=== PATIENT | male | born 1975 | race Caucasian/White ===

== ENCOUNTER 2024-05-10 04:13 | Observation (INO) | payer MEDICAID ==
[~2024-05-10] VITALS: Ht 177.8 cm; Wt 65.5 kg
[2024-05-10] MEDS ORDERED: NS 1,000 ML IV SCH (04:25)
[2024-05-10 04:30] LABS: BASOPHILS ABSOLUTE AUTO 0.06 K/mm3 (0.00-0.23); BASOPHILS PERCENT AUTO 1 % (0-2); EOSINOPHILS ABSOLUTE AUTO 0.17 K/mm3 (0.00-0.68); EOSINOPHILS PERCENT AUTO 2 % (0-6); Hemoglobin 14.8 g/dL (13.5-17.5); IMMATURE GRAN ABSOLUTE AUTO 0.02 K/mm3 (0.00-0.10); IMMATURE GRAN PERCENT AUTO 0 % (0-1); LYMPHOCYTES PERCENT AUTO 31 % (21-46); MONOCYTES ABSOLUTE AUTO 0.79 K/mm3 (0.16-1.47); MONOCYTES PERCENT AUTO 10 % (4-13); Mean Corpuscular HGB 32.2 pg (26.0-34.0); Mean Corpuscular HGB Conc 35.2 g/dL (31.5-36.5); Mean Corpuscular Volume 91 fL (80-100); Mean Platelet Volume 9.4 fL (9.1-12.4); NEUTROPHILS ABSOLUTE AUTO 4.63 K/mm3 (1.96-9.15); NEUTROPHILS PERCENT AUTO 57 % (41-73); Platelet Count 303 K/mm3 (150-400); RDW Standard Deviation 40.1 fL (35.1-46.3); White Blood Cell Count 8.17 K/mm3 (4.00-11.30)
[2024-05-10 05:00] LABS: Albumin, Blood 3.4 g/dL (3.4-5.0); Albumin/Globulin Ratio 0.8 (0.8-1.8); Bilirubin, Total 0.6 mg/dL (0.1-1.0); Bun/Creatinine Ratio 20.2 (12.0-20.0); Calcium, Blood 9.2 mg/dL (8.5-10.1); Creatinine, Blood 0.89 mg/dL (0.60-1.20); Total Protein, Blood 7.4 g/dL (6.4-8.2)
[2024-05-10] MEDS ORDERED: DICY20 PO (08:15)
[2024-05-10] MEDS ORDERED: ONDA4ODT MM (08:15)
[2024-05-10] MEDS ORDERED: Aspirin 325 MG Tab PO ONE (09:40)
[2024-05-10] MEDS ORDERED: Naloxone HCl 0.4MG / ML 1ML Vial IV PRN (10:30)
[2024-05-10] MEDS ORDERED: Acetaminophen 325 MG TABLET PO PRN (10:30)
[2024-05-10] MEDS ORDERED: Lactated Ringer's 1,000 ML IV SCH ×2 (10:35→12:40)
[2024-05-10 11:45] LABS: Source, Urine Voided
--- NOTE | 2024-05-10 11:56 | NUR ---
REPORT RECIEVED FROM ER NURSE AT [id number]
[2024-05-10 12:04] LABS: Bilirubin, Urine Neg (Neg); Blood, Urine Neg (Neg); Glucose Qualitative, Urine Neg (Neg); Ketones, Urine Neg (Neg); Leukocyte Esterase, Urine Neg (Neg); Nitrite, Urine Neg (Neg); Protein, Urine Neg (Neg); Urobilinogen, Urine NORM (Normal)
[2024-05-10 12:11] VITALS: BP 109/98
[2024-05-10 12:38] LABS: Appearance, Urine Clear (Clear); Color, Urine Yellow (P-Yellow)
[2024-05-10 12:41] LABS: U Amphetamine Screen DETECTED; U Barbituate Screen Not Detected; U Benzodiazapine Screen Not Detected; U Buprenorphine Screen Not Detected; U Cannabinoids Screen Not Detected; U Cocaine Screen Not Detected; U Methadone Screen Not Detected; U Methamphetamine Screen DETECTED; U Opiates Screen Not Detected; U Oxycodone Screen Not Detected; U Phencyclidine Screen Not Detected
--- NOTE | 2024-05-10 13:52 | NUR ---
ARRIVAL TO UNIT PT ARRIVED TO PCU AT 1207 VIA GURNEY AND ON RA. PT ABLE TO TRANSFER FROM GURNEY TO BED ON HIS OWN, PT VERY SOMNOLENT AT ARRIVAL. PT ORIENTED TO ROOM AND ABLE TO ANSWER SHORT BRIEF QUESTIONS BEFORE FALLING BACK TO SLEEP. PT ABLE TO STAND AND USE URINAL AT BEDSIDE, TOLERATED FAIR. PT ABLE TO ANSWER FEW ORIENTATION QUESTIONS BEFORE FALLING BACK TO SLEEP.
--- NOTE | 2024-05-10 15:38 | NUR ---
DISHCARGE UPDATE DISCHARGE PACKET GONE OVER WITH PT AND PT FAMILY AND FRIEND. DISCHARGE PACKET WITH PT AT TIME OF DISCHARGE. PT INSTRUCTED TO WALK TO HALLWAY AND BACK TO HIS BED TO ASSESS HOW PT AMBULTES, TOLERATED WELL. PT ABLE TO TRANSFER TO AND FROM WHEELCHAIR ON HIS OWN, TOLERATED WELL.
[2024-05-11] MEDS ORDERED: Enoxaparin 40 MG/0.4 ML SYR SC SCH (09:00)
[2024-05-11] MEDS ORDERED: Aspirin 81 MG Chew PO SCH (09:00)
== END 2024-05-10 15:30 | disposition home or self-care (01) ==
LOC: ER 04:13 → PCU 04:14 → ERHOLD 04:14 → PCU 12:11
PROVIDERS: Emergency Medicine; ADMIT Internal Medicine
DX: T40.2X1A Poisoning by other opioids, accidental (unintentional), initial encounter (principal); R79.89 Other specified abnormal findings of blood chemistry; R74.8 Abnormal levels of other serum enzymes; F15.10 Other stimulant abuse, uncomplicated; Z88.0 Allergy status to penicillin
CPT/HCPCS: 71045; 80053; 81003; 82550; 84484; 85025; 93005; 93010; 96360; 99285-25; A9270; G0378; J7120

== ENCOUNTER 2024-05-23 23:39 | Inpatient (IN) | payer MEDICAID ==
[~2024-05-23] VITALS: Ht 177.8 cm; Wt 63.9 kg
[~2024-05-23 23:39] MED LIST: DICY20 PO; ONDA4ODT MM
[2024-05-24 00:28] LABS: BASOPHILS ABSOLUTE AUTO 0.08 K/mm3 (0.00-0.23); BASOPHILS PERCENT AUTO 0 % (0-2); EOSINOPHILS ABSOLUTE AUTO 0.01 K/mm3 (0.00-0.68); EOSINOPHILS PERCENT AUTO 0 % (0-6); Hematocrit 44.6 % (37.0-53.0); Hemoglobin 15.4 g/dL (13.5-17.5); IMMATURE GRAN ABSOLUTE AUTO 0.08 K/mm3 (0.00-0.10); IMMATURE GRAN PERCENT AUTO 0 % (0-1); LYMPHOCYTES ABSOLUTE AUTO 1.45 K/mm3 (0.84-5.20); LYMPHOCYTES PERCENT AUTO 7 % (21-46); MONOCYTES ABSOLUTE AUTO 1.51 K/mm3 (0.16-1.47); MONOCYTES PERCENT AUTO 7 % (4-13); Mean Corpuscular HGB 30.9 pg (26.0-34.0); Mean Corpuscular HGB Conc 34.5 g/dL (31.5-36.5); Mean Corpuscular Volume 90 fL (80-100); Mean Platelet Volume 8.6 fL (9.1-12.4); NEUTROPHILS ABSOLUTE AUTO 18.49 K/mm3 (1.96-9.15); NEUTROPHILS PERCENT AUTO 86 % (41-73); Platelet Count 401 K/mm3 (150-400); RDW Standard Deviation 39.4 fL (35.1-46.3); Red Blood Cell Count 4.98 M/mm3 (4.30-5.90); White Blood Cell Count 21.62 K/mm3 (4.00-11.30)
[2024-05-24 00:47] LABS: Albumin, Blood 3.5 g/dL (3.4-5.0); Albumin/Globulin Ratio 0.8 (0.8-1.8); Bilirubin, Total 0.7 mg/dL (0.1-1.0); Bun/Creatinine Ratio 13.8 (12.0-20.0); Calcium, Blood 9.4 mg/dL (8.5-10.1); Creatinine, Blood 0.8 mg/dL (0.60-1.20); Globulin, Blood 4.3 g/dL (2.2-4.0); Potassium, Blood 4.1 mmol/L (3.5-5.5); Total Protein, Blood 7.8 g/dL (6.4-8.2)
[2024-05-24] MEDS ORDERED: Ketorolac Tromethamine 30mg Vial IV ONE (01:20)
[2024-05-24] MEDS ORDERED: CefTRIAXone Sodium 1,000 MG in NS 50 ML IV ONE (01:20)
[2024-05-24] MEDS ORDERED: NS 1,000 ML IV SCH (01:20)
[2024-05-24] MEDS ORDERED: FLU VACC TS2024-25(6MOS UP)/PF 45 MCG/0.5 ML SYRINGE IM SCH (03:05)
[2024-05-24] MEDS ORDERED: OxyCODONE HCL 5 MG TAB PO PRN (03:05)
[2024-05-24] MEDS ORDERED: Acetaminophen 325 MG TABLET PO PRN (03:05)
[2024-05-24] MEDS ORDERED: Ondansetron HCl 2 MG / ML 2ML Vial IV PRN (03:10)
[2024-05-24] MEDS ORDERED: Vancomycin HCL 1,500 MG in NS 250 ML IV ONE (03:25)
--- NOTE | 2024-05-24 04:55 | NUR ---
NEW ADMIT/ SHIFT SUMMARY RECEIVED PT FROM ED AT 0455. PT VERY LETHARGIC, AWAKENS, BUT UNABLE TO KEEP AWAKE. UNABLE TO COMPLETE ADMISSION HISTORY IN ITS ENTIRETY. CELLULITIS RUE OUTLINED WITH SKIN MARKER, ELEVATED ON PILLOW. PICTURES OF CELLULITIS AND MULTIPLE WOUNDS OBTAINED AFTER VERBAL CONSENT. SECURITY COUNTED PT'S MONEY AND TOOK IT TO THE SAFE. BED ALARM ON, CALL LIGHT WITHIN REACH, SIDE RAILS UP X2.
[2024-05-24 05:45] LABS: BASOPHILS ABSOLUTE AUTO 0.08 K/mm3 (0.00-0.23); BASOPHILS PERCENT AUTO 0 % (0-2); EOSINOPHILS ABSOLUTE AUTO 0.03 K/mm3 (0.00-0.68); EOSINOPHILS PERCENT AUTO 0 % (0-6); Hematocrit 40.8 % (37.0-53.0); Hemoglobin 14.1 g/dL (13.5-17.5); IMMATURE GRAN ABSOLUTE AUTO 0.08 K/mm3 (0.00-0.10); IMMATURE GRAN PERCENT AUTO 0 % (0-1); LYMPHOCYTES ABSOLUTE AUTO 2.34 K/mm3 (0.84-5.20); LYMPHOCYTES PERCENT AUTO 12 % (21-46); MONOCYTES PERCENT AUTO 9 % (4-13); Mean Corpuscular HGB 31.5 pg (26.0-34.0); Mean Corpuscular HGB Conc 34.6 g/dL (31.5-36.5); Mean Corpuscular Volume 91 fL (80-100); Mean Platelet Volume 9.1 fL (9.1-12.4); NEUTROPHILS ABSOLUTE AUTO 15.59 K/mm3 (1.96-9.15); NEUTROPHILS PERCENT AUTO 79 % (41-73); Platelet Count 370 K/mm3 (150-400); RDW Standard Deviation 40.3 fL (35.1-46.3); Red Blood Cell Count 4.48 M/mm3 (4.30-5.90); White Blood Cell Count 19.82 K/mm3 (4.00-11.30)
[2024-05-24 06:01] VITALS: BP 111/70
--- NOTE | 2024-05-24 06:15 | NUR ---
MONEY TO SECURITY 2 SECURTIY OFFICERS TO ROOM- COUNTED PATIENTS MONEY AND TOOK TO THE SAFE. PATIENT VERY LETHARGIC AND UNABLE TO STAY AWAKE. SECURITY RECEIPT IS IN THE CHART.
[2024-05-24 06:26] LABS: Albumin/Globulin Ratio 0.8 (0.8-1.8); Bilirubin, Total 0.6 mg/dL (0.1-1.0); Bun/Creatinine Ratio 13.8 (12.0-20.0); Calcium, Blood 8.8 mg/dL (8.5-10.1); Creatinine, Blood 0.73 mg/dL (0.60-1.20); Globulin, Blood 3.8 g/dL (2.2-4.0); Potassium, Blood 3.7 mmol/L (3.5-5.5); Total Protein, Blood 6.8 g/dL (6.4-8.2)
[2024-05-24 07:30] VITALS: BP 110/85
[2024-05-24] MEDS ORDERED: Enoxaparin 40 MG/0.4 ML SYR SC SCH (09:00)
[2024-05-24] MEDS ORDERED: Docusate Sodium 100 MG Cap PO SCH (09:00)
[2024-05-24] MEDS ORDERED: Lactobacil 2-S.Thermo-Bifido 1 1 Cap PO SCH (09:00)
[2024-05-24] MEDS ORDERED: Vancomycin HCL 1,500 MG in NS 250 ML IV SCH (12:00)
[2024-05-24 15:52] VITALS: BP 120/71
--- NOTE | 2024-05-24 18:01 | NUR ---
NO ACUTE CHANGES THIS SHIFT. PT IS ALERT AND ORIENTED X4, PLEASANT AND ABLE TO MAKE NEEDS KNOWN. CALLS APPROPRIATELY. PLAN IS IV ANTIBIOTICS. INDEPENDENT IN THE ROOM. REDNESS NOTED TO RUE ALONG WITH SEVERAL CUTS AND OPENINGS IN SKIN. NOTED IN CHART.
[2024-05-24 19:40] VITALS: BP 122/78
[2024-05-25 03:05] LABS: BASOPHILS ABSOLUTE AUTO 0.09 K/mm3 (0.00-0.23); BASOPHILS PERCENT AUTO 1 % (0-2); EOSINOPHILS ABSOLUTE AUTO 0.13 K/mm3 (0.00-0.68); EOSINOPHILS PERCENT AUTO 1 % (0-6); Hematocrit 40.8 % (37.0-53.0); Hemoglobin 13.7 g/dL (13.5-17.5); IMMATURE GRAN ABSOLUTE AUTO 0.09 K/mm3 (0.00-0.10); IMMATURE GRAN PERCENT AUTO 1 % (0-1); LYMPHOCYTES ABSOLUTE AUTO 2.61 K/mm3 (0.84-5.20); LYMPHOCYTES PERCENT AUTO 16 % (21-46); MONOCYTES ABSOLUTE AUTO 1.51 K/mm3 (0.16-1.47); MONOCYTES PERCENT AUTO 9 % (4-13); Mean Corpuscular HGB 30.8 pg (26.0-34.0); Mean Corpuscular HGB Conc 33.6 g/dL (31.5-36.5); Mean Corpuscular Volume 92 fL (80-100); Mean Platelet Volume 8.5 fL (9.1-12.4); NEUTROPHILS ABSOLUTE AUTO 12.03 K/mm3 (1.96-9.15); NEUTROPHILS PERCENT AUTO 73 % (41-73); Platelet Count 346 K/mm3 (150-400); RDW Coefficient Variation 12.4 % (11.7-14.2); RDW Standard Deviation 42.1 fL (35.1-46.3); Red Blood Cell Count 4.45 M/mm3 (4.30-5.90); White Blood Cell Count 16.46 K/mm3 (4.00-11.30)
[2024-05-25 03:22] LABS: Anion Gap 11 mmol/L (3-11); Blood Urea Nitrogen 13 mg/dL (8-24); Bun/Creatinine Ratio 18.9 (12.0-20.0); CO2, Blood 26 mmol/L (21-32); Calcium, Blood 8.6 mg/dL (8.5-10.1); Chloride, Blood 110 mmol/L (98-108); Creatinine, Blood 0.69 mg/dL (0.60-1.20); Glomerular Filtration Rate 113 (60-); Glucose, Blood 125 mg/dL (70-99); Potassium, Blood 3.5 mmol/L (3.5-5.5); Sodium, Blood 143 mmol/L (136-145); Vancomycin, Trough 16.2 ug/mL (5.0-10.0)
[2024-05-25] MEDS ORDERED: Vancomycin HCL 1,000 MG in NS 250 ML IV SCH (04:00)
--- NOTE | 2024-05-25 04:45 | NUR ---
SHIFT SUMMARY. PATIENT IS A&OX4. NO ACUTE CHANGES THIS SHIFT FROM PREVIOUS SHIFT. PATIENT CALLS APPROPRIATELY AND IS ABLE TO MAKE HIS NEEDS KNOWN. PATIENT IS RECEIVING IV ABX FOR CELLULUTIS TO RIGHT ARM. PATIENT IS COOPERATIVE WITH CARE. BED IS LOCKED IN THE LOWEST POSITION WITH CALL LIGHT IN REACH. CARE IS ONGOING,
[2024-05-25 05:01] VITALS: BP 111/60
[2024-05-25 07:31] VITALS: BP 112/67
[2024-05-25] MEDS ORDERED: Acetaminophen650 M1 PO (11:28)
[2024-05-25] MEDS ORDERED: VISBIOME 112.51 EACH PO (11:28)
[2024-05-25] MEDS ORDERED: SULTRIDS PO (11:29)
--- NOTE | 2024-05-25 13:32 | NUR ---
PT DISCHARGED HOME. PER MD. NOT RECOMMEDED TO DISCHARGE AT THIS TIME HOWEVER PT STATED THAT HE HAD THINGS TO TAKE CARE OF AT HOME AND NEEDED TO LEAVE. DISCHARGE INSTRUCTIONS DISCUSSED WITH PT. EMPHASIZED IMPORTANCE OF TAKING MEDICATIONS PRESCRIBED AND FOLLOW UP WITH PCP. PT VERBALIZED UNDERSTANDING THAT HE SHOULD COME BACK TO ER IF SYMPTOMS DO NOT IMPROVE TOMORROW. PT ALERT AND ORIENTED X4, WALKED OUT WITH RN, SECURITY COUNTED MONEY WITH RN PRESENT. NO QUESTIONS OR CONCERNS AT THIS TIME. ADVISED TO CALL MEDICAL FLOOR FOR ANY QUESTIONS OR CONCERNS.
== END 2024-05-25 13:30 | disposition home or self-care (01) | DRG 872 ==
LOC: ER 23:39 → MEDS 05-24 03:00 → ENPENDDIS 05-25 11:20 → MEDS 05-25 13:30
PROVIDERS: Family Medicine; Student in an Organized Health Care Education/Training Program; ADMIT Student in an Organized Health Care Education/Training Program
PROC: 3E03329 Introduction of Other Anti-infective into Peripheral Vein, Percutaneous Approach (ICD-10-PCS; principal; 2024-05-24)
PROC: 0H9FXZZ Drainage of Right Hand Skin, External Approach (ICD-10-PCS; 2024-05-24)
DX: A41.9 Sepsis, unspecified organism (principal); L03.113 Cellulitis of right upper limb; E86.0 Dehydration; F15.10 Other stimulant abuse, uncomplicated; L03.011 Cellulitis of right finger; Z88.0 Allergy status to penicillin; Z71.51 Drug abuse counseling and surveillance of drug abuser
CPT/HCPCS: 10060; 36415; 73201; 80048; 80053; 80202; 83605; 83735; 85025; 87040; 93005; 93010; 96365-59; 96375-59; 99285-25; A9270; J0696; J1650; J1885; J3370; J7030; J7050; Q9967